=== PATIENT | female | born 1980 | race Caucasian/White ===

== ENCOUNTER 2017-01-26 16:27 | Emergency (ER) | payer OTHER ==
[~2017-01-26] VITALS: Ht 175.3 cm; Wt 63.6 kg
[~2017-01-26 16:27] MED LIST: LORA5SOL82 PO
[2017-01-26 17:15] VITALS: BP 101/65; PULSE 91; RESP 12; O2SAT 100
[2017-01-26] MEDS ORDERED: ALBU8.5H2 INHALATION (18:35)
--- NOTE | 2017-01-26 19:41 | ED.REPORT ---
HPI-General Illness Date of Service Jan 26, 2017 ED Provider: Chas Yeboah MD The patient is a 36 year old female who presents to the emergency department by EMS complaining of throat swelling that has been worsening over the last week. She feels that in the last 3-4 days the swelling has caused her to have difficulty breathing. Due to this she has been unable to complete her normal daily activities. During the episodes of difficulty breathing she also experiences back pain, fatigue, dizziness, and visual changes. She denies fever , chills or cough. She also reports stress from chronic pain. She states she has been having "seizure-like" convulsions over the last 2 weeks. She has had this problem for years but this has been worse recently. She states that she feels like she is "checked out." She is also concerned that the asthma medication she has been taking has been "riling her up." She does not have a diagnosis of asthma but is currently going through an evaluation for this. Some years ago she reports having had video EEG monitoring at [facility] for 7 days which did not reveal a definitive diagnosis. She also states she is currently undergoing a workup for her thyroid. Her next appointment with her primary doctor is next month. 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 (Allergy, Severe, Throat swelling, 09/30/16) Scheduled Loratadine (Loratadine) 5 Mg/5 Ml (5 Ml) Solution 10 MG PO DAILY Scheduled PRN Albuterol HFA (Proair HFA) 8.5 Gm Hfa.aer.ad 2 PUFFS INHALATION Q4H PRN PRN For Shortness of Breath General Time Seen by MD: 19:40 Chief Complaint Other (throat swelling) Hx Obtained From: Patient, EMS Arrived By: Ambulance Sudden in Onset?: No Onset Occurred: 1 week ago Symptom Duration: Since onset Quality: Painful Severity: Current: Mild Severity: Maximum: Mild Recent Healthcare: No recent hospitalization Similar Sx Previous: No Past Medical History Past Medical History She reports several seizure activity but does not have a final diagnosis. Hx of hernia's per patient report. Reports: Mental illness Past Surgical History Denies Family History Noncontributory Smoking History Former Smoker Social History Alcohol Use: Denies alcohol use Drug Use: Denies drug use Other Social History: Lives with parents, Local resident Occupation no work or school lives with parents 08/06/2016 Ambulatory Status Independent Review of Systems +"feels checked out" Full Review of Systems Constitutional: Reports: Fatigue, Denies: Chills, Fever Ears / Nose / Throat: Reports: Throat pain, Throat swelling Respiratory: Reports: Shortness of breath, Denies: Non-productive cough Musculoskeletal: Reports: Back pain Neurologic: Reports: Dizziness, Seizure (convulsions), Vision change Psychiatric: Reports: Stress Complete sys rev & neg: except as marked. Physical Exam Vital Signs Vital Signs Date Time Temp Pulse Resp B/P Pulse Ox O2 Delivery O2 Flow Rate FiO2 01/26/17 17:15 36.5 91 12 101/65 100 Room Air Initial VS: Reviewed, Vital signs normal Head / Eyes: Atraumatic, Normocephalic, PERRL Respiratory: Breath sounds normal, Clear to auscultation, No respiratory distress Cardiovascular: Regular rate & rhythm, Heart sounds normal, Intact distal pulses Abdomen / GI: Soft, Non-tender, No guarding, No rebound, No distention Lymphatic: No lymphadenopathy Extremities: Vascular intact, Neuro intact, No swelling, No tenderness Skin: Warm, Dry, No cyanosis General/Constitutional: Awake, Alert, Cooperative ENT: Atraumatic, Airway patent, Mucous membranes moist, Pharynx NL, No peritonsillar abscess, Tympanic membs NL, Ext aud canal NL, Mastoid area NL Pharynx / Tonsils / Uvula: Negative: Peritonsil abscess L, Peritonsil abscess R , Pharyngeal erythema, Tonsillar erythema L, Tonsillar erythema R, Tonsillar exudate L, Tonsillar exudate R, Tonsillar swelling L, Tonsillar swelling R, Uvula edematous, Uvula enlarged Neck: Atraumatic, Supple, No meningismus, Full range of motion, No swelling, Non-tender, Thyroid NL Can easily feel thyroid cartilage and tracheal rings. Neurologic: Oriented X3, Speech NL, No motor deficits, No sensory deficits, CN II - XII intact, Memory NL No ataxia. No facial droop. Interpretation & Diagnostics Lab Results Interpretation Test 01/26/17 18:00 Hold Urine Received (Received) Urine Opiates Screen Negative Urine Methadone Screen Negative Urine Barbiturates Screen Negative Urine Amphetamines Screen Negative Urine Benzodiazepines Screen Negative Urine Cocaine Metabolite Screen Negative Urine Cannabinoids Screen Negative Re-Eval/Medical Decision Source of Hx: Old records, EMS Time of Eval: 19:56 Re-Evaluation/Progress Note: Discussed exam findings, diagnosis, and plan for discharge. All questions were addressed. Counseled Regarding: Diagnosis, Need for follow-up, When/why to return to ED Discharge & Departure Primary Impression: Sensation of swollen throat Disposition: Home Discharge Condition All VS Reviewed: Yes Condition: Stable Additional Instructions: Thank you for entrusting us with your care today. Your exam findings are reassuring. There is no evidence of anything imminently dangerous at this time. You should discuss these symptoms with your primary doctor. Call their office tomorrow to schedule an appointment in the next few days. We ordered a thyroid panel in order to speed this process up. The physician you see in a few days will be able to view these results. Seek care sooner for any other new or concerning symptoms. Referrals: Lesvia Jamil DO (PCP) Romeoibirma Attestation Portions of this note were transcribed by Augusta See. I, Dr. Yeboah personally performed the history, physical exam and medical decision-making; I reviewed and confirmed the accuracy of the information in the transcribed note. Signed by: Natalie Alexis, 01/26/2017 at 2005. copies to: Lesvia Jamil Kirk H MD Jan 26, 2017 19:41 Augusta See Jan 26, 2017 19:42
[2017-01-28 08:12] LABS: Free Thyroxine Index 1.6 (1.2-4.9); Thyroxine (T4) 5.9 ug/dL (4.5-12.0)
== END 2017-01-26 21:01 | disposition home or self-care (01) ==
LOC: SED 16:27 → EDBD 16:27 → SED 21:01
DX: R22.1 Localized swelling, mass and lump, neck (principal); Z87.891 Personal history of nicotine dependence; Z88.2 Allergy status to sulfonamides; Z88.5 Allergy status to narcotic agent; Z91.013 Allergy to seafood

== ENCOUNTER 2017-04-23 17:38 | Emergency (ER) | payer OTHER ==
[~2017-04-23] VITALS: Ht 175.3 cm; Wt 62.3 kg
[~2017-04-23 17:38] MED LIST changes: +ALBU8.5H2 INHALATION
[2017-04-23 17:53] VITALS: BP 101/67; PULSE 67; RESP 18; O2SAT 100
--- NOTE | 2017-04-23 19:43 | ED.REPORT ---
HPI-General Illness Date of Service Apr 23, 2017 ED Provider: Dr. Espino 36 y/o female with a hx of mental illness presents to the ED complaining of dizziness onset 3 days ago. Associated sx include dropping things, chills, diaphoresis and worsening visual blackouts since yesterday, especially when she bends. She also states "I have not been drinking enough water because it makes me nauseous. I have been drinking about 1-2 water bottles a day". She reports incontinence upon increasing water intake.The pt talked to her urologist who does not think there is a problem with her bladder.She denies chest pain, fever and vomiting. Her last menstrual period was last week. Pt's GIULIANA report indicates 12 ER visits in the last 12 months. 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 (Allergy, Severe, Throat swelling, 09/30/16) Scheduled Loratadine (Loratadine) 5 Mg/5 Ml (5 Ml) Solution 10 MG PO DAILY Scheduled PRN Albuterol HFA (Proair HFA) 8.5 Gm Hfa.aer.ad 2 PUFFS INHALATION Q4H PRN PRN For Shortness of Breath General Time Seen by MD: 19:43 Chief Complaint Dizziness Hx Obtained From: Patient Arrived By: Walk-in Sudden in Onset?: Yes Onset Occurred: 3 days ago Symptom Duration: Since onset Severity: Current: No pain currently Severity: Maximum: No pain Recent Healthcare: Recent doctor visit Similar Sx Previous: No Past Medical History Past Medical History She reports several seizure activity but does not have a final diagnosis. Hx of hernia's per patient report. Reports: Mental illness Past Surgical History Denies Family History Noncontributory Smoking History Former Smoker Social History Alcohol Use: Denies alcohol use Drug Use: Denies drug use Other Social History: Lives with parents, Local resident Occupation no work or school lives with parents 08/06/2016 Ambulatory Status Independent Review of Systems Reports: dehydration Full Review of Systems Constitutional: Reports: Chills, Denies: Fever Cardiovascular: Denies: Chest pain GI: Denies: Vomiting Female: Reports: Incontinence (with increased water intake) Skin: Reports Diaphoresis Neurologic: Reports: Dizziness, Vision change (blackouts) Complete sys rev & neg: except as marked. Physical Exam Vital Signs Vital Signs Date Time Temp Pulse Resp B/P Pulse Ox O2 Delivery O2 Flow Rate FiO2 04/23/17 23:06 74 16 04/23/17 17:53 36.6 67 18 101/67 100 Room Air Initial VS: Reviewed Head / Eyes: Atraumatic, Normocephalic ENT: Mucous membranes moist, Conjunctiva normal, No scleral icterus Neck: Supple, Non-tender, Full range of motion Respiratory: Breath sounds normal, Clear to auscultation, No respiratory distress Extremities: Vascular intact, Neuro intact, No swelling, No tenderness Skin: Warm, Dry, No cyanosis Neurologic: Alert, Oriented, Nonfocal General/Constitutional: Awake, Alert, Cooperative Head / Eyes: Atraumatic, Normocephalic, PERRL, EOMI Cardiovascular: Heart rate NL, Regular rhythm, No gallop, No rubs Heart Sounds / Murmur: Positive: Murmur present... (II/ at the upper right sternal border) Abdomen: Atraumatic, Soft, Non-tender, BS normoactive Interpretation & Diagnostics Lab Results Interpretation Result Diagram: 04/23/17203504/23/172035 Test 04/23/17 20:36 04/23/17 21:32 White Blood Count 4.4th/mm3 (3.8-10.1) Red Blood Count 4.76mil/mm3 (3.90-5.20) Hemoglobin 13.3g/dL (12.0-15.6) Hematocrit 40.5% (35.0-46.0) Mean Corpuscular Volume 85.1fL (81-100) Mean Corpuscular Hemoglobin 27.9pg (27.0-35.0) Mean Corpuscular Hemoglobin Concent 32.8% (32.0-37.0) Red Cell Distribution Width 14.1% (12.3-15.4) Platelet Count 179bil/L (150-400) Neutrophils (%) (Auto) 46.2% (40-74) Lymphocytes (%) (Auto) 34.6% (14-46) Monocytes (%) (Auto) 15.8% (4-12) Eosinophils (%) (Auto) 2.5% (0-5) Basophils (%) (Auto) 0.9% (0-3) Sodium Level 141mEq/L (134-144) Potassium Level 4.0mEq/L (3.5-5.2) Chloride Level 105mEq/L (97-108) Carbon Dioxide Level 24mmol/L (18-29) Blood Urea Nitrogen 8mg/dL (6-20) Creatinine 0.50mg/dL (0.57-1.00) Estimat Glomerular Filtration Rate 202mL/min (>59) Glucose Level 82mg/dL (60-99) Calcium Level 9.1mg/dL (8.5-10.1) Total Bilirubin 0.3mg/dL (0.0-1.2) Aspartate Amino Transf (AST/SGOT) 26U/L (0-50) Alanine Aminotransferase (ALT/SGPT) 21U/L (0-32) Alkaline Phosphatase 61U/L (25-150) Total Protein 6.8g/dL (6.4-8.4) Albumin 4.2g/dL (3.4-5.0) Hold Urine Received (Received) Lab Results Interpretation: Urine: Trace protein Trace blood negative ECG Interpretation ECG Interpretation: Normal sinus rhythm. Rate 54 Time: 20:21 Interpreted by: ED physician Normal ECG Interpretation: Normal ECG w/ rate of... (54), Normal sinus rhythm Re-Eval/Medical Decision Med Decision/Clinical Course Frequent ED visitor with non-specific symptoms. Looks well, other data reassuring. Does not appear dehydrated. Source of Hx: Old records Time of Eval: 22:37 Patient Status: Condition improved Re-Evaluation/Progress Note: Rechecked pt. Discussed lab results, diagnosis and plan to discharge. Pt understands and agrees with the plan. F/U instructions and RTER warning given. All questions addressed. Counseled Regarding: Diagnosis, Lab results, Need for follow-up, When/why to return to ED Discharge & Departure Primary Impression: Dizziness and giddiness Disposition: Home Discharge Condition All VS Reviewed: Yes Condition: Stable Additional Instructions: Emergency Department evaluation included interview, examination, ECG and labs. All findings are reassuring at present, U did not appear to be dehydrated. May use ondansetron as needed for nausea. Follow-up with primary care soon. Referrals: Lesvia Jamil DO (PCP) Scribe Attestation Portions of this note were transcribed by Ann-Marie Keane. I, , personally performed the history, physical exam and medical decision- making;I reviewed and confirmed the accuracy of the information in the transcribed note. Signed by Natalie Espinal. 04/23/17 23:26 copies to: Lesvia Jamil Donald L MD Apr 23, 2017 19:43 Ann-Marie Keane Apr 23, 2017 21:08
[2017-04-23 20:44] LABS: BASOPHILS % (AUTO) 0.9 % (0-3); EOSINOPHILS % (AUTO) 2.5 % (0-5); MONOCYTES % (AUTO) 15.8 % (4-12); Mean Corpuscular Hemoglobin 27.9 pg (27.0-35.0); Mean Corpuscular Volume 85.1 fL (81-100); NEUTROPHILS % (AUTO) 46.2 % (40-74); Platelet Count 179 bil/L (150-400)
[2017-04-23] MEDS ORDERED: _Ondansetron ODT 4 mg Tablet PO PRN (22:45)
[2017-04-23 23:06] VITALS: PULSE 74; RESP 16
[2017-04-24] MEDS ORDERED: 5-HY50CA2 PO (11:53)
[2017-04-24] MEDS ORDERED: creon (11:53)
[2017-04-24] MEDS ORDERED: CYAN-2 SL (11:53)
[2017-04-24] MEDS ORDERED: FERR15DR PO (11:53)
[2017-04-24] MEDS ORDERED: GAMM1POW MC (11:53)
== END 2017-04-23 23:06 | disposition home or self-care (01) ==
LOC: SED 17:38
DX: R42 Dizziness and giddiness (principal); Z87.891 Personal history of nicotine dependence; Z79.899 Other long term (current) drug therapy; Z88.2 Allergy status to sulfonamides; Z88.5 Allergy status to narcotic agent; Z91.013 Allergy to seafood

== ENCOUNTER 2017-06-09 18:57 | Emergency (ER) | payer OTHER ==
[~2017-06-09] VITALS: Ht 175.3 cm; Wt 60.0 kg
[~2017-06-09 18:57] MED LIST changes: +5-HY50CA2 PO; +CYAN-2 SL; +FERR15DR PO; +GAMM1POW MC; +creon
[2017-06-09 19:10] VITALS: BP 100/68; PULSE 73; RESP 16; O2SAT 99
[2017-06-09 19:35] LABS: BASOPHILS % (AUTO) 1.5 % (0-3); EOSINOPHILS % (AUTO) 4.1 % (0-5); MONOCYTES % (AUTO) 11.9 % (4-12); Mean Corpuscular Hemoglobin 26.6 pg (27.0-35.0); Mean Corpuscular Volume 78.4 fL (81-100); NEUTROPHILS % (AUTO) 51.4 % (40-74); Platelet Count 190 bil/L (150-400)
[2017-06-09] MEDS ORDERED: 0.9% Sodium Chloride 1,000 ML IV ONE ×2 (19:55→21:05)
[2017-06-09] MEDS ORDERED: Ondansetron 2 mg/mL 2 mL Inj IVPUSH ONE (19:55)
[2017-06-09] MEDS ORDERED: Ondansetron 2 mg/mL 2 mL Inj ONE (19:56)
--- NOTE | 2017-06-09 20:32 | ED.REPORT ---
HPI-General Illness Date of Service Jun 09, 2017 ED Provider: Raphael Garcia PA-C Harsha is a 36-year-old female presents with a chief complaint of dehydration. Patient reports a one-week history of fatigue which she attributes to dehydration, not eating well, emotional disturbance. Patient states that her sister had a late term miscarriage miscarriage which she found quite emotionally draining. It is associated with poor sleep, mild epigastric abdominal pain. She will also complains of a familiar global headache associated with an aura, increased urinary incontinence. Patient reports she is aware she has to urinate but cannot get to the bathroom in time. Complains of back pain. Recent history of food poisoning over last week and associated with diarrhea and vomiting. Patient reports a diagnosis of UTI 1 month ago for which she did not take her antibiotics. Reports a diagnosis of sinus infection which she did not treat with antibiotics. Denies dysuria, hematuria, vaginal bleeding, discharge, , fever, chills, melena, hematochezia, cough. Note from the urgent care indicates an episode of presyncope. On closer examination the patient describes an episode where she felt quite fatigued until she had to lie down and sleep in a public place. Denies association with chest pain, shortness of breath. 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 (Allergy, Severe, Throat swelling, 09/30/16) Scheduled ([creon]) 6,000 TID Loratadine (Loratadine) 5 Mg/5 Ml (5 Ml) Solution 10 MG PO DAILY Scheduled PRN Albuterol HFA (Proair HFA) 8.5 Gm Hfa.aer.ad 2 PUFFS INHALATION Q4H PRN PRN For Shortness of Breath Ondansetron ODT (Zofran ODT) 4 Mg Tablet 4 MG PO Q4H PRN PRN For Nausea Miscellaneous Medications 5-Hydroxytryptophan (5-Htp) 50 Mg Capsule 50 MG PO Cyanocobalamin (Vitamin B-12) (B-12) 1,000 Mcg/Ml Drops 1,000 MCG SL Ferrous Sulfate (Ian-in-Jocy) 15 Mg/1 Ml Drops 75 MG PO Gamma-Aminobutyric Acid (Aminobutyric Acid) 1 Gm Powder 1 GM MC General Time Seen by MD: 19:51 Chief Complaint Other (dehydration) Hx Obtained From: Patient Arrived By: Walk-in Recent Healthcare: Recent doctor visit Past Medical History Past Medical History She reports several seizure activity but does not have a final diagnosis. Hx of hernia's per patient report. Reports: Mental illness Past Surgical History Denies Family History Noncontributory Smoking History Former Smoker Social History Alcohol Use: Denies alcohol use Drug Use: Denies drug use Other Social History: Lives with parents, Local resident Occupation no work or school lives with parents 08/06/2016 Ambulatory Status Independent Review of Systems General: Denies fever, chills, malaise. HEENT: Admits headache, denies congestion, sore throat Respiratory: Denies dyspnea, cough, shortness of breath, wheezing. Cardiovascular: Denies chest pain, palpitations. Gastrointestinal: Admits vomiting, diarrhea, abdominal pain. Genitourinary: Admits urgency, denies dysuria, hematuria Otherwise as noted in HPI. Physical Exam General: Well appearing, well developed, thin, no acute distress. Anxious appearing. Head: Atraumatic, normocephalic. No mastoid tenderness. Eyes: No scleral icterus or injection. No discharge. PERRL. Vision grossly intact. Ears: Pinna and tragus nontender with manipulation. External auditory canal patent, atraumatic and without discharge. Tympanic membrane painter, shiny and translucent without fluid, bulging, retraction or perforation. Hearing grossly intact. Nose: Symmetrical, nares patent without discharge. No frontal or maxillary sinus tenderness. Mouth/pharynx: normal dentition, mucus membranes moist. Tonsils 2+ and symmetrical, uvula midline. Pharynx noninjected, no cobblestoning or discharge. Voice clear. Neck: No tenderness or lymphadenopathy. Trachea midline. Respiratory: Regular rate and rhythm. Breath sounds present, clear to auscultation and equal bilaterally. No respiratory distress. No increased work of breathing, speaks in complete sentences. Cardiovascular: Regular rate and rhythm, without murmur, gallop or rub. No pedal edema. Gastrointestinal: Abdomen flat and mildly tender in the right quadrants without guarding or rebound. Negative Conley sign. Bowel sounds normoactive. Skin: Warm and dry. Back: Normal to inspection, negative CVA tenderness Neurological: Grossly nonfocal. Legs: Calf diameter roughly equal left or right, negative calf tenderness, negative Homans sign. Negative Edema. Psychological: Alert and oriented. Speech appropriate, linear and logical but slightly rapid and pressured. Behavior appropriate. Vital Signs Vital Signs Date Time Temp Pulse Resp B/P Pulse Ox O2 Delivery O2 Flow Rate FiO2 06/09/17 23:24 36.6 63 16 97/49 99 Room Air 06/09/17 23:13 36.6 63 97/49 99 Room Air 06/09/17 20:56 36.5 62 92/58 98 Room Air 06/09/17 19:10 37.1 73 16 100/68 99 Room Air Interpretation & Diagnostics Lab Results Interpretation Result Diagram: 06/09/17192606/09/171926 Test 06/09/17 19:27 06/09/17 21:18 White Blood Count 3.4th/mm3 (3.8-10.1) Red Blood Count 5.15mil/mm3 (3.90-5.20) Hemoglobin 13.7g/dL (12.0-15.6) Hematocrit 40.4% (35.0-46.0) Mean Corpuscular Volume 78.4fL (81-100) Mean Corpuscular Hemoglobin 26.6pg (27.0-35.0) Mean Corpuscular Hemoglobin Concent 33.9% (32.0-37.0) Red Cell Distribution Width 13.0% (12.3-15.4) Platelet Count 190bil/L (150-400) Neutrophils (%) (Auto) 51.4% (40-74) Lymphocytes (%) (Auto) 31.1% (14-46) Monocytes (%) (Auto) 11.9% (4-12) Eosinophils (%) (Auto) 4.1% (0-5) Basophils (%) (Auto) 1.5% (0-3) Sodium Level 141mEq/L (134-144) Potassium Level 3.4mEq/L (3.5-5.2) Chloride Level 103mEq/L (97-108) Carbon Dioxide Level 23mmol/L (18-29) Blood Urea Nitrogen 9mg/dL (6-20) Creatinine 0.50mg/dL (0.57-1.00) Estimat Glomerular Filtration Rate 202mL/min (>59) Glucose Level 95mg/dL (60-99) Calcium Level 8.7mg/dL (8.5-10.1) Total Bilirubin 0.5mg/dL (0.0-1.2) Aspartate Amino Transf (AST/SGOT) 29U/L (0-50) Alanine Aminotransferase (ALT/SGPT) 23U/L (0-32) Alkaline Phosphatase 62U/L (25-150) Total Protein 6.9g/dL (6.4-8.4) Albumin 4.3g/dL (3.4-5.0) Urine Color Straw (YELLOW) Urine Appearance Clear (CLEAR,HAZY) Urine pH 6.0 (5.0-8.0) Urine Specific [place] 1.010 (1.003-1.035) Urine Protein Tracemg/dL (NEG,TRACE) Urine Glucose (UA) Negativemg/dL (NEGATIVE) Urine Ketones Tracemg/dL (NEGATIVE) Urine Occult Blood Small (NEGATIVE) Urine Nitrite Negative (NEGATIVE) Urine Bilirubin Negative (NEGATIVE) Urine Urobilinogen Normalmg/dL (NORMAL) Urine Leukocyte Esterase Negative (NEGATIVE) Urine RBC 0-2/hpf (0-2) Urine WBC 0-5/hpf (0-5) Urine Epithelial Cells Occasional/hpf (NONE-MOD) Urine Crystals Amorphous urates (NONE Urine Bacteria Few/hpf (NONE-FEW) Urine Hyaline Casts None/lpf (NONE) Urine Granular Casts None seen (NONE SEEN) Urine Waxy Casts None seen (NONE SEEN) Urine Red Blood Cell Casts None seen (NONE SEEN) Urine White Blood Cell Casts None seen (NONE SEEN) Urine Mucus None seen (None Seen) Urine Trichomonas None seen (NONE SEEN) Urine Yeast None (NONE SEEN) Urinalysis Comment None Urine Culture Reflexed Not indicated Hold Urine Received (Received) Re-Eval/Medical Decision Med Decision/Clinical Course Trudy is a 36-year-old female presented with a chief complaint of dehydration and concern over a previously diagnosed UTI which she did not treat with antibiotics. She presents a somewhat convoluted history but reports an episode of suspected food poisoning over the weekend involving vomiting and diarrhea which is largely resolved. Presents to urgent care out of concern for fatigue and referred to the emergency department. The patient complains of mild epigastric abdominal pain, mild and familiar migraine type headache. She also reports a great deal of personal stress lately related to her sister's late- term miscarriage. She believes all this causes her to eat and drink poorly. The note from the urgent care reports a presyncopal episode that the patient describes here as an episode of physical or emotional fatigue that caused her to lie down in a public place, not associated with chest pain or shortness of breath. Physical examination this is an extremely thin young woman. Her speech is somewhat rapid and pressured, but not disengaged from reality. She has mild abdominal tenderness without rebound and right quadrants. Lung sounds normal, heart tones normal. Vital signs are normal with the exception of slightly low blood pressure in the 90s. Otherwise benign examination. CBC reveals mild leukopenia, CMP is unimpressive. Mild hypokalemia is noted. Treatment is initiated with ondansetron 4 mg, 1 L normal saline. Patient reports some improvement after this but requests a second liter of saline. This is supplied. Patient supplies a urine sample which is sent for analysis. I find the physical examination reassuring against her reported sinus infection. Labs are reassuring against a dangerous cause for abdominal pain as well as severe dehydration, infection. Urinalysis is pending. I discussed the case with Dr. Yeboah and transferred care at shift change. Discharge & Departure Shift Change Sign-Out Patient Care Transferred: Yes (Dr. Yeboah) Discussed Complaint(s): Yes Laboratory Evaluation: Done, results pending Primary Impression: Fatigue Fatigue type: unspecified Qualified Code: R53.83 - Other fatigue Additional Impression: Mild dehydration Disposition: Home Patient Instructions: Dehydration (ED) Additional Instructions: No dangerous condition is discovered today. You did have some degree of dehydration. If the diarrhea becomes much more significant, I recommend Imodium (loperamide) this is an [id number] product. Use ondansetron as needed for nausea. Follow up in the clinic to discuss the vaginal symptoms you are experiencing. There is no evidence of urinary tract infection today. Referrals: Lesvia Jamil DO (PCP) EDSupervising Provider for APC: Chas Yeboah MD, Seth PA-C Jun 09, 2017 20:32 Taylor Matthews Jun 09, 2017 22:45 ALICIA VALDOVINOS Jun 09, 2017 22:47 Chas Yeboah MD Jun 09, 2017 23:12
[2017-06-09 20:56] VITALS: BP 92/58; PULSE 62; O2SAT 98
[2017-06-09 22:51] LABS: APPEARANCE,URINE CLEAR (CLEAR,HAZY); COLOR,URINE STRAW (YELLOW); OCCULT BLOOD,URINE SMALL (NEGATIVE); UROBILINOGEN,URINE NORMAL (NORMAL)
[2017-06-09 23:13] VITALS: BP 97/49; PULSE 63; O2SAT 99
[2017-06-09] MEDS ORDERED: ONDA4TAB9 PO (23:15)
[2017-06-09 23:24] VITALS: BP 97/49; PULSE 63; RESP 16; O2SAT 99
== END 2017-06-09 23:25 | disposition home or self-care (01) ==
LOC: SED 18:57
DX: R53.83 Other fatigue (principal); E86.0 Dehydration; R10.13 Epigastric pain; R51 Headache; R32 Unspecified urinary incontinence; M54.5 Low back pain; Z87.440 Personal history of urinary (tract) infections; Z87.891 Personal history of nicotine dependence; Z88.2 Allergy status to sulfonamides; Z88.5 Allergy status to narcotic agent; Z91.013 Allergy to seafood; Z91.041 Radiographic dye allergy status
CPT/HCPCS: 36415; 80053; 81000; 81025; 85025; 96361; 96374; 99284; J2405; J7030

== ENCOUNTER 2017-06-10 02:06 | Emergency (ER) | payer OTHER ==
[~2017-06-10] VITALS: Ht 175.3 cm; Wt 60.0 kg
[2017-06-10 02:06] VITALS: BP 103/58; PULSE 66; RESP 21; O2SAT 98
[~2017-06-10 02:06] MED LIST changes: +ONDA4TAB9 PO
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
[2017-06-10 04:09] VITALS: BP 92/46; PULSE 64; RESP 17; O2SAT 100
== END 2017-06-10 04:55 | disposition home or self-care (01) ==
LOC: SED 02:06
DX: R07.9 Chest pain, unspecified (principal); R06.02 Shortness of breath; J45.909 Unspecified asthma, uncomplicated; F41.9 Anxiety disorder, unspecified; Z79.51 Long term (current) use of inhaled steroids; Z88.2 Allergy status to sulfonamides; Z88.5 Allergy status to narcotic agent